=== PATIENT | male | born 1990 | race American Indian/Alaskan Native ===

== ENCOUNTER 2020-11-18 00:11 | Emergency (ER) | payer OTHER ==
[2020-11-18 01:44] VITALS: BP 143/90
[2020-11-18] MEDS ORDERED: HYDROcodone/ACETAMINOPHEN 5-325 MG TAB PO ONE (02:13)
--- NOTE | 2020-11-18 02:27 | XRay Report ---
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 FINDINGS: BONES / JOINT(S): Comminuted acute markedly displaced fracture of midportion of patella with 4.3 cm o f distraction and moderate prepatellar soft tissue hematoma. Osteopenia. No significant arthritis. SOFT TISSUES: No significant abnormality. ADDITIONAL FINDINGS: None. Signer Name: Samson Rojo MD Signed: 11/18/2020 2:23 AM Workstation Name: [id number]
--- NOTE | 2020-11-18 04:28 | Emergency Department Report ---
ED Lower Extremity HPI - General Chief Complaint: Extremity Injury, Lower Stated Complaint: FELL HURT KNEE Time Seen by Provider: 11/18/20 02:15 Source: patient Mode of arrival: Ambulatory Limitations: No Limitations - History of Present Illness Initial Comments: Patient 30-year-old male who presents for right anterior knee pain status post ground-level fall to the pavement. Incident happened 1 week ago in group home. Patient is amatory with crutches has knee immobilizer. However has not seen orthopedics. Complains of 3/10 knee pain, but advises he presents because knee swelling is persistent. It is are exacerbated by palpation and prolonged standing. Offloading and elevating. Patient denies pain medication at this time MD Complaint: knee injury - Related Data Previous Rx's Medication Instructions Recorded Last Taken Type Acetaminophen/Codeine [Tylenol 1 tab PO Q6H PRN #12 tab 11/18/20 Unknown Rx /Codeine # 3 tab] Allergies Allergy/AdvReac Type Severity Reaction Status Date / Time shrimp Allergy Vomiting Verified 11/18/20 01:44 ED Review of Systems ROS: Stated complaint: FELL HURT KNEE Other details as noted in HPI Constitutional: denies: chills, fever Eyes: denies: eye pain, eye discharge, vision change ENT: denies: ear pain, throat pain Respiratory: denies: cough, shortness of breath, wheezing Cardiovascular: denies: chest pain, palpitations Endocrine: no symptoms reported Gastrointestinal: denies: abdominal pain, nausea, diarrhea Genitourinary: denies: urgency, dysuria Musculoskeletal: joint swelling (R anterior knee ) Skin: denies: rash, lesions Neurological: denies: headache, weakness, paresthesias Psychiatric: denies: anxiety, depression Hematological/Lymphatic: denies: easy bleeding, easy bruising ED Past Medical Hx - Past Medical History Previous Medical History?: Yes Hx Asthma: Yes Additional medical history: OSTROGENESIS - Surgical History Past Surgical History?: Yes Additional Surgical History: Left leg with screws - Social History Smoking Status: Never Smoker Substance Use Type: Alcohol - Medications Home Medications: Home Medications Medication Instructions Recorded Confirmed Last Taken Type Acetaminophen/Codeine [Tylenol 1 tab PO Q6H PRN #12 tab 11/18/20 Unknown Rx /Codeine # 3 tab] ED Physical Exam - General Limitations: No Limitations General appearance: alert, in no apparent distress - Head Head exam: Present: atraumatic, normocephalic - Eye Eye exam: Present: normal appearance, EOMI Pupils: Present: normal accommodation - ENT ENT exam: Present: mucous membranes moist - Neck Neck exam: Present: normal inspection, full ROM. Absent: tenderness - Respiratory Respiratory exam: Present: normal lung sounds bilaterally. Absent: respiratory distress, wheezes - Cardiovascular Cardiovascular Exam: Present: regular rate, normal rhythm, normal heart sounds. Absent: systolic murmur, diastolic murmur, rubs, gallop - GI/Abdominal GI/Abdominal exam: Present: soft, normal bowel sounds - Rectal Rectal exam: Present: deferred - Expanded Lower Extremity Exam Right Knee exam: Present: full ROM, tenderness, swelling, ecchymosis, effusion, pain w/ pronation/supination, pain/laxity with valgus, pain/laxity with varus, full knee extension. Absent: abrasion, laceration, deformity, crepidus, dislocation, erythema, posterior draw sign Lower Leg exam: Present: full ROM. Absent: tenderness Ankle exam: Present: full ROM. Absent: tenderness Foot/Toe exam: Present: full ROM. Absent: tenderness Neuro vascular tendon exam: Present: pulse deficit. Absent: motor deficit, sensory deficit, tendon deficit Gait: Positive: observed and limited by pain - Back Exam Back exam: Present: normal inspection, full ROM. Absent: CVA tenderness (R), CVA tenderness (L) - Neurological Exam Neurological exam: Present: alert, oriented X3, CN II-XII intact - Expanded Neurological Exam Expanded Patient oriented to: Present: person, place, time Speech: Present: fluid speech Motor strength exam: RUE: 5, LUE: 5, RLE: 5, LLE: 5 DTR: ankle (R): 2+, ankle (L): 2+ Best Eye Response ([place]): (4) open spontaneously Best Motor Response ([place]): (6) obeys commands Best Verbal Response ([place]): (5) oriented [place] Total: 15 - Psychiatric Psychiatric exam: Present: normal affect - Skin Skin exam: Present: warm, dry, intact, normal color. 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 FINDINGS: BONES / JOINT(S): Comminuted acute markedly displaced fracture of midportion of patella with 4.3 cm of distraction and moderate prepatellar soft tissue hematoma. Osteopenia. No significant arthritis. SOFT TISSUES: No significant abnormality. ADDITIONAL FINDINGS: None. Signer Name: Samson Rojo MD Signed: 11/18/2020 2:23 AM Workstation Name: [id number] Transcribed By: TL Dictated By: Samson Rojo MD Electronically Authenticated By: Samson Rojo MD Signed Date/Time: 11/18/20222 DD/ 1 TD/TT: Print Cancel - Medical Decision Making knee xray: commminuted acute markedly displaced fracture of midportion of patella with 4.3 cm of distraction and moderate prepatellar soft tissue hematoma. Osteopenia. No significant arthritis. This injury is 1 week old. There is no open wound, laceration abrasion or bleeding. Patient maintains full knee extension, there is no pop. The pulses are intact. Patient has knee im mobilizer and crutches. Patient denies pain medication at this time wrist pain with supination and pronation. Plan referral to orthopedic surgery as needed pain meds, continue to use crutches, use knee immobilizer as directed, Critical care attestation.: If time is entered above; I have spent that time in minutes in the direct care of this critically ill patient, excluding procedure time. ED Disposition Clinical Impression: Internal derangement of right knee Fracture of patella, right, closed Qualifiers: Encounter type: initial encounter Fracture morphology: comminuted Fracture alignment: displaced Qualified Code(s): S82.041A - Displaced comminuted fracture of right patella, initial encounter for closed fracture Disposition: 01 HOME / SELF CARE / HOMELESS Is pt being admited?: No Does the pt Need Aspirin: No Condition: Stable Instructions: Cast or Splint Care, Adult, [id number], Crutch Use, Adult, [id number], Patellar Fracture, Adult Additional Instructions: Take all medications as prescribed follow-up with orthopedic surgery today, use knee immobilizer and crutches as directed, to return to ED should symptoms worsen. Prescriptions: Acetaminophen/Codeine [Tylenol /Codeine # 3 tab] 1 tab PO Q6H PRN #12 tab PRN Reason: Pain Referrals: GITA MILLER MD [Staff Physician] - 3-5 Days Forms: Work/School Release Form(ED) Time of Disposition: 04:38
== END 2020-11-18 04:40 | disposition home or self-care (01) ==
LOC: ED 00:11
DX: S82.091A Other fracture of right patella, initial encounter for closed fracture (principal); X58.XXXA Exposure to other specified factors, initial encounter; Y93.89 Activity, other specified; Y92.89 Other specified places as the place of occurrence of the external cause; Y99.8 Other external cause status; M23.91 Unspecified internal derangement of right knee; J45.909 Unspecified asthma, uncomplicated; Z98.890 Other specified postprocedural states; Z91.013 Allergy to seafood; Z79.899 Other long term (current) drug therapy
CPT/HCPCS: 99283